=== PATIENT | female | born 2000 | race Two or more races ===

== ENCOUNTER 2023-02-15 14:17 | Emergency (ER) | payer OTHER ==
[2023-02-15 14:36] VITALS: BMI 25.0
[2023-02-15] MEDS ORDERED: ACETAMINOPHEN 500 MG TABLET (FP) PO ONE (15:10)
[2023-02-15] MEDS ORDERED: ACETAMINOPHEN 325 MG TABLET (FP) ONE (15:13)
[2023-02-15 16:17] VITALS: RESP 18
[2023-02-15] MEDS ORDERED: KETOROLAC TROMETHAMINE 30 MG/1 ML VIAL IVPUSH ONE (16:19)
[2023-02-15] MEDS ORDERED: SODIUM CHLORIDE 0.9% 1000 ML INFUS.BAG IV ONE (16:19)
[2023-02-15] MEDS ORDERED: KETOROLAC TROMETHAMINE 30 MG/1 ML VIAL ONE (16:37)
[2023-02-15 17:20] LABS: HEMATOCRIT 37.2 % (32.4-45.2); HEMOGLOBIN 12.4 GM/dL (10.7-15.3); MCH 27.2 pg (25.7-33.7); MCHC 33.4 g/dl (32.0-36.0); MEAN CELL VOLUME 81.5 fl (80-96); MEAN PLT VOLUME 7.7 fl (7.5-11.1); PLATELET COUNT 418 10^3/uL (134-434); RBC 4.56 M/mm3 (3.60-5.2); RDW 14.6 % (11.6-15.6); WHITE BLOOD COUNT 10.7 K/mm3 (4.0-10.0)
[2023-02-15 17:27] LABS: INR 1.3 (0.83-1.09)
[2023-02-15 17:48] LABS: POTASSIUM 3.7 mmol/L (3.5-5.1)
[2023-02-15 17:50] LABS: CALCIUM 9.4 mg/dL (8.5-10.1)
[2023-02-15 17:51] LABS: ALBUMIN 3.9 g/dl (3.4-5.0); BLOOD UREA NITROGEN 6.3 mg/dL (7-18)
[2023-02-15 17:53] LABS: CREATININE 0.7 mg/dL (0.55-1.3)
[2023-02-15 17:55] LABS: BILIRUBIN,TOTAL 0.6 mg/dL (0.2-1); TOT PROT 8.2 g/dl (6.4-8.2)
[2023-02-15] MEDS ORDERED: ALBUTEROL SO4 2.5/IPRATROPIUM 0.5 INH SOL 3 ML VIAL.NEB. NEB ONE ×2 (18:02→18:06)
[2023-02-15 18:08] VITALS: BP 115/58; PULSE 101; TEMP 99.4
== END 2023-02-15 20:12 | disposition home or self-care (01) ==
LOC: JERFT 14:17 → JER 14:17
PROC: 3E0F7GC Introduction of Other Therapeutic Substance into Respiratory Tract, Via Natural or Artificial Opening (ICD-10-PCS; principal; 2023-02-15)
PROC: 3E0333Z Introduction of Anti-inflammatory into Peripheral Vein, Percutaneous Approach (ICD-10-PCS; 2023-02-15)
DX: R05.9 Cough, unspecified (principal); R50.9 Fever, unspecified; R51.9 Headache, unspecified; R00.0 Tachycardia, unspecified; M54.2 Cervicalgia; Z20.822 Contact with and (suspected) exposure to COVID-19
CPT/HCPCS: 0241U-QW; 36415; 71046-TC-FY; 80053; 84703; 85027; 85610; 87040; 99284-25

== ENCOUNTER 2023-04-20 14:24 | Emergency (ER) | payer OTHER ==
[2023-04-20 14:47] VITALS: BMI 25.8
[2023-04-20] MEDS ORDERED: ALBUTEROL SO4 2.5/IPRATROPIUM 0.5 INH SOL 3 ML VIAL.NEB. NEB ONE ×2 (15:21→15:25)
[2023-04-20] MEDS ORDERED: predniSONE 20 MG TABLET (UD) PO ONE (15:22)
[2023-04-20] MEDS ORDERED: predniSONE 20 MG TABLET (UD) ONE (15:25)
[2023-04-20 17:07] VITALS: BP 114/60; PULSE 89; RESP 16; TEMP 98.2
== END 2023-04-20 17:07 | disposition home or self-care (01) ==
LOC: JERFT 14:24 → JER 14:24 → JERFT 17:07
PROC: 3E0F7GC Introduction of Other Therapeutic Substance into Respiratory Tract, Via Natural or Artificial Opening (ICD-10-PCS; principal; 2023-04-20)
DX: R06.02 Shortness of breath (principal); R05.9 Cough, unspecified
CPT/HCPCS: 71046-TC-FY; 99284-25